=== PATIENT | female | born 1965 | race Caucasian/White ===

== ENCOUNTER → 2025-05-25 | Outpatient (CLI) | payer OTHER, SELFPAY ==
[2025-05-25 07:30] LABS: Collection Type, Urine Clean Catch
[2025-05-25 08:22] LABS: Bacteria,Urine Rare; Basophils # (Auto) 0.1 Thou/mm3 (0.0-0.2); Basophils % (Auto) 1 % (0-2.5); Bilirubin,Urine Negative (Negative); Blood,Urine Negative (Negative); Clarity,Urine Clear (Clear/Hazy); Color,Urine Lt-Yellow (Lt Yel-Yel); Eosinophils # (Auto) 0.2 Thou/mm3 (0.0-0.5); Eosinophils % (Auto) 3 % (0-10); Glucose, Urine Negative (Negative); Hematocrit 42.4 % (36.0-46.0); Hemoglobin 14.3 g/dL (12.0-16.0); Hyaline Casts,Urine < 1 /hpf (0-1); Immature Granulocytes % (Auto) 0 % (0-0); Immature Granulocytes Auto 0.02 Thou/mm3 (0.00-0.00); Ketones,Urine Negative (Negative); Leukocyte Esterase,Urine Positive (Negative); Lymphocytes # (Auto) 2.4 Thou/mm3 (1.0-4.8); Lymphocytes % (Auto) 35 % (10-50); Mean Corpuscular HGB Conc 33.7 g/dl (31.0-37.0); Mean Corpuscular Volume 89 fL (80-100); Monocytes # (Auto) 0.4 Thou/mm3 (0.0-0.8); Monocytes % (Auto) 7 % (0-12); Neutrophils # (Auto) 3.6 Thou/mm3 (1.8-7.7); Neutrophils % (Auto) 54 % (37-80); Nitrite,Urine Negative (Negative); Nucleated Red Blood Cell % 0 /100 WBC (0); Platelet Count 313 Thou/mm3 (140-440); Protein,Urine Negative (Neg - Trace); RBC,Urine 4 /hpf (0-3); RDW Standard Deviation 43.7 fL (36.4-46.3); Red Blood Count 4.76 Miln/mm3 (4.00-5.20); Specific Gravity,Urine 1.023 (1.001-1.035); Squamous Epithelial Cell,Urine 16 /hpf (0-5); Urobilinogen,Urine Negative mg/dL (0.0-1.0); WBC,Urine 12 /hpf (0-5); White Blood Count 6.7 Thou/mm3 (3.6-11.0)
[2025-05-25 08:27] LABS: Glucose Estimated Average 97 mg/dL (80-131)
[2025-05-25 08:28] LABS: Alanine Aminotransferase 27 U/L (10-49); Albumin, Serum 4.3 gm/dL (3.5-5.0); Albumin/Globulin Ratio 1.6 (1.2-2.2); Alkaline Phosphatase 90 U/L (46-116); Anion Gap 7 (7-16); Aspartate Amino Transferase 29 U/L (0-34); BUN/Creatinine Ratio 18 Ratio (12-20); Bilirubin,Total 0.5 mg/dL (0.3-1.2); Blood Urea Nitrogen 14 mg/dL (9-23); Calcium 9.1 mg/dL (8.3-10.6); Calcium (Corrected) 9.1 mg/dL (8.5-10.1); Carbon Dioxide 28.8 mMol/L (20.0-31.0); Cardiac Risk Estimate 3.3 RATIO (3.7-5.6); Chloride 103 mMol/L (98-107); Cholesterol 203 mg/dL (132-200); Creatinine (Component) 0.8 mg/dL (0.6-1.3); Globulin 2.7 gm/dL (2.3-3.5); Glucose 89 mg/dL (74-106); HDL Cholesterol 62 mg/dL (40-60); LDL Cholesterol,Calculated 121 mg/dL (0-130); Osmolality,Calculated 277 (275-295); Sodium 139 mMol/L (136-145); Thyroid Stimulating Hormone 8.13 uIU/mL (0.55-4.78); Triglycerides 100 mg/dL (30-150); Uric Acid 5.3 mg/dL (3.1-7.8); eGFR > 60 See Note
[2025-05-25 08:51] LABS: Vitamin B12 457 pg/mL (211-911); Vitamin D 25 Hydroxy Total 51.6 ng/mL (7.3-40.2)
== END | disposition home or self-care (01) ==
PROVIDERS: PCP Internal Medicine; Referring Provider Internal Medicine; Visit Provider Internal Medicine
DX: Z00.00 Encounter for general adult medical examination without abnormal findings (principal)
CPT/HCPCS: 36415; 80053; 80061; 81001; 82306; 82607; 83036; 84443; 84550; 85025

== ENCOUNTER → 2025-07-07 | Outpatient (CLI) | payer OTHER, SELFPAY ==
--- NOTE | 2025-07-07 14:00 | XR_ITS ---
Examination: Breast ultrasound, unilateral, left complete Date and time of exam: July 07, 2025 1423 hours INDICATIONS: Patient states left breast lump 12:00 position note is beginning 2018 Technique: Real-time dykes scale ultrasonographic imaging performed left breast including all 4 quadrants as well as nipple retroareolar and axillary region. Findings: 12:00 nodule lobular margins 5.1 x 3.1 x 4.8 cm IMPRESSION: BI-RADS Category 4: Suspicious for malignancy Suspicious mass 12:00 position left breast, biopsy is needed to exclude breast carcinoma, this mass is amenable to ultrasound-guided breast biopsy for diagnosis
--- NOTE | 2025-07-07 14:30 | XR_ITS ---
Examination: Diagnostic digital mammography, unilateral, left Computer aided detection 3-D breast Tomosynthesis, unilateral Date and time of exam: July 07, 2025 1451 hours Compared to mammograms dating to April 11, 2017 INDICATIONS: Patient states left breast lump 7 years Technique: Nonmagnified MLO, CC views of the left breast have been obtained, reconstructed from 3-D Tomosynthesis images. R2 computer aided detection program utilized for evaluation of suspicious masses and/or abnormal calcifications. 3-D Tomosynthesis images obtained. Findings: Scattered areas of fibroglandular density. Calcified mass likely fat necrosis in the 12:00 position left breast, measuring 4.9 cm Impression: BI-RADS category 3: Probably benign findings Recommend 6 month follow-up left mammography to confirm stable benign calcified mass 12:00 position left breast, likely fat necrosis
== END | disposition home or self-care (01) ==
LOC: CDIM 14:02
PROVIDERS: PCP Internal Medicine; Referring Provider Internal Medicine; Visit Provider Internal Medicine
DX: R92.332 Mammographic heterogeneous density, left breast (principal); N63.25 Unspecified lump in the left breast, overlapping quadrants
CPT/HCPCS: 76641; 77061; 77065; G0279

== ENCOUNTER → 2025-08-11 | Outpatient (CLI) | payer OTHER, SELFPAY ==
[2025-08-10 08:59] LABS: Basophils # (Auto) 0.1 Thou/mm3 (0.0-0.2); Basophils % (Auto) 1 % (0-2.5); Eosinophils # (Auto) 0.2 Thou/mm3 (0.0-0.5); Eosinophils % (Auto) 4 % (0-10); Hematocrit 41.7 % (36.0-46.0); Hemoglobin 13.8 g/dL (12.0-16.0); Immature Granulocytes Auto 0.01 Thou/mm3 (0.00-0.00); Lymphocytes # (Auto) 2.3 Thou/mm3 (1.0-4.8); Lymphocytes % (Auto) 34 % (10-50); Mean Corpuscular HGB Conc 33.1 g/dl (31.0-37.0); Mean Corpuscular Hemoglobin 29.9 pg (25.0-35.0); Mean Corpuscular Volume 91 fL (80-100); Monocytes # (Auto) 0.4 Thou/mm3 (0.0-0.8); Monocytes % (Auto) 6 % (0-12); Neutrophils # (Auto) 3.7 Thou/mm3 (1.8-7.7); Neutrophils % (Auto) 55 % (37-80); Nucleated Red Blood Cell # 0.00 Thou/mm3 (0.00-0.00); Nucleated Red Blood Cell % 0 /100 WBC (0); Platelet Count 316 Thou/mm3 (140-440); RDW Standard Deviation 44.2 fL (36.4-46.3); Red Blood Count 4.61 Miln/mm3 (4.00-5.20); White Blood Count 6.7 Thou/mm3 (3.6-11.0)
[2025-08-10 09:15] LABS: INR 1.0 (0.9-1.3); Partial Thromboplastin Time 28.8 Seconds (22.0-36.0); Prothrombin Time 10.8 Seconds (9.0-12.2)
--- NOTE | 2025-08-11 08:30 | XR_ITS ---
Examinations: Ultrasound-guided percutaneous breast biopsy, left breast 12:00 nodule Left breast sonography limited INDICATIONS: BI-RADS 4 suspicious nodule 12:00 position left breast on sonogram July 07, 2025. Exam date and time: August 11, 2025 0917 hours Informed consent provided. Technique: A timeout was completed verifying correct patient, procedure, site, positioning, and special equipment if applicable Informed consent provided. The patient was placed in a supine position for the breast biopsy. Sonographic images of the breast were performed for localization of the suspicious nodule The patient's breast was prepped and draped in sterile fashion. Maximum sterile barrier technique, hand hygiene, ultrasound sterile technique 1% lidocaine was used to anesthetize the skin and breast adjacent to the suspicious nodule. Utilizing ultrasonographic guidance, 8 core biopsies were obtained of the suspicious nodule utilizing an 18-gauge BioPince needle. The specimens appears satisfactory. US guided breast biopsy marker placement. Estimated blood loss 3 cc. The patient tolerated the procedure well and there were no complications. Impression: Successful ultrasound-guided percutaneous breast biopsy, left breast 12:00 nodule. Ultrasound guided breast biopsy marker placement.
== END | disposition home or self-care (01) ==
PROVIDERS: Radiology Diagnostic Radiology; PCP Internal Medicine; Referring Provider Internal Medicine; Visit Provider Internal Medicine
DX: D24.2 Benign neoplasm of left breast (principal); N60.32 Fibrosclerosis of left breast; R92.1 Mammographic calcification found on diagnostic imaging of breast; Z01.812 Encounter for preprocedural laboratory examination
CPT/HCPCS: 19083; 36415; 85025; 85610; 85730; A4648

== ENCOUNTER → 2025-08-19 | Outpatient (CLI) | payer OTHER, SELFPAY ==
[2025-08-19 07:55] LABS: Free T4 (Free Thyroxine) 1.44 ng/dL (0.89-1.76); Thyroid Stimulating Hormone 4.02 uIU/mL (0.55-4.78)
== END | disposition home or self-care (01) ==
PROVIDERS: PCP Internal Medicine; Referring Provider Internal Medicine; Visit Provider Internal Medicine
DX: E03.9 Hypothyroidism, unspecified (principal)
CPT/HCPCS: 36415; 84439; 84443

== ENCOUNTER → 2025-10-20 | Outpatient (CLI) | payer OTHER, SELFPAY ==
--- NOTE | 2025-10-20 13:35 | XR_ITS ---
Examination: Breast ultrasound, unilateral, left complete Date and time of exam: October 20, 2025, 1344 hours INDICATIONS: Left breast lump and cellulitis pattern noted 2 months Technique: Real-time dykes scale ultrasonographic imaging performed left breast including all 4 quadrants as well as nipple retroareolar and axillary region. Findings: 12:00 3.6 x 2.4 x 4.5 cm mass with internal echogenicity IMPRESSION: BI-RADS Category 3: Probably benign findings Mass in the left breast in the 12 o'clock position, differential would include abscess, solid tumor mass not excluded, the appearance should be clinically correlated 3-month follow-up left breast sonogram strongly recommended, also recommend repeat left diagnostic mammography
== END | disposition home or self-care (01) ==
PROVIDERS: PCP Internal Medicine; Referring Provider Internal Medicine; Visit Provider Internal Medicine
DX: N63.25 Unspecified lump in the left breast, overlapping quadrants (principal)
CPT/HCPCS: 76641

== ENCOUNTER 2025-11-30 09:15 | Day surgery (SDC) | payer OTHER, SELFPAY ==
--- NOTE | 2025-11-29 07:00 | EKG_ITS ---
[facility], [place] Test Date: 2025-11-29 Pat Name: NICO RANKIN Department: Room: - Gender: Female Alarm Installation Technician: ARMAND : 1965 Requested By: Jefferson Ortiz Order Number: [id number] Reading MD: Jefferson Ortiz Measurements Intervals [place] Rate: 64 P: 70 PA: 156 QRS: 74 QRSD: 74 T: 51 QT: 379 QTc: 394 Interpretive Statements SINUS RHYTHM No previous ECG available for comparison /[id number]/S0/[id number].pdf
[2025-11-29 07:39] VITALS: BMI 34.8
[2025-11-29 08:30] LABS: Basophils # (Auto) 0.1 Thou/mm3 (0.0-0.2); Basophils % (Auto) 1 % (0-2.5); Eosinophils # (Auto) 0.2 Thou/mm3 (0.0-0.5); Eosinophils % (Auto) 3 % (0-10); Hematocrit 41.6 % (36.0-46.0); Hemoglobin 13.5 g/dL (12.0-16.0); Immature Granulocytes Auto 0.02 Thou/mm3 (0.00-0.00); Lymphocytes # (Auto) 1.5 Thou/mm3 (1.0-4.8); Lymphocytes % (Auto) 21 % (10-50); Mean Corpuscular HGB Conc 32.5 g/dl (31.0-37.0); Mean Corpuscular Hemoglobin 29.7 pg (25.0-35.0); Mean Corpuscular Volume 92 fL (80-100); Monocytes # (Auto) 0.4 Thou/mm3 (0.0-0.8); Monocytes % (Auto) 6 % (0-12); Neutrophils # (Auto) 5.0 Thou/mm3 (1.8-7.7); Neutrophils % (Auto) 70 % (37-80); Nucleated Red Blood Cell # 0.00 Thou/mm3 (0.00-0.00); Nucleated Red Blood Cell % 0 /100 WBC (0); Platelet Count 316 Thou/mm3 (140-440); RDW Standard Deviation 47.9 fL (36.4-46.3); Red Blood Count 4.54 Miln/mm3 (4.00-5.20); White Blood Count 7.2 Thou/mm3 (3.6-11.0)
[2025-11-29 08:42] LABS: Alanine Aminotransferase 53 U/L (10-49); Albumin, Serum 4.3 gm/dL (3.5-5.0); Albumin/Globulin Ratio 1.4 (1.2-2.2); Alkaline Phosphatase 98 U/L (46-116); Anion Gap 7 (7-16); Aspartate Amino Transferase 42 U/L (0-34); BUN/Creatinine Ratio 14 Ratio (12-20); Bilirubin,Total 0.3 mg/dL (0.3-1.2); Blood Urea Nitrogen 15 mg/dL (9-23); Calcium 9.7 mg/dL (8.3-10.6); Calcium (Corrected) 9.7 mg/dL (8.5-10.1); Carbon Dioxide 29.9 mMol/L (20.0-31.0); Chloride 101 mMol/L (98-107); Creatinine (Component) 1.1 mg/dL (0.6-1.3); Estimated Creatinine Clearance 69.5 mL/min (>60); Globulin 3.1 gm/dL (2.3-3.5); Glucose 90 mg/dL (74-106); Osmolality,Calculated 276 (275-295); Potassium 3.8 mMol/L (3.4-5.1); Sodium 138 mMol/L (136-145); Total Protein 7.4 gm/dL (5.7-8.2); eGFR 58 See Note
--- NOTE | 2025-11-29 12:30 | SUR.PREOP ---
Pt notified to come in tomorrow at 0900 for surgery.
[2025-11-30] VITALS (8 sets, daily range): BP systolic 110–137; BP diastolic 64–95; PULSE 63–82; RESP 12–20; TEMP 36.4–36.8; O2SAT 96–100
[2025-11-30] MEDS: RINGERS LACTATED 1000 ML 1,000 ML 20 ML IV (09:47)
--- NOTE | 2025-11-30 11:43 | ESOP_ITS ---
Date of Procedure 11/30/25 Pre Op Diagnosis Left breast lump Post Op Diagnosis Left breast lump Procedure Left breast lumpectomy Findings A hard lump in the left breast in the upper quadrant. A hard and fluid-filled mass deep in the breast attached to pectoralis fascia, likely the source of her recurrent infection Procedure Description Patient brought into the operating room in supine position. After administration of general endotracheal anesthesia, patient's left breast was prepped and draped in sterile surgical manner. She was noted to have a hard mass in the upper quadrant at 12:00 location. After administration of local anesthesia an approximately 6 cm elliptical incision was made and circumferential flaps were raised. The underlying lab was circumferentially dissected of breast tissue and continued deep. Deep in the upper part of the left breast she was noted to have a hard fluid-filled mass attached to the pectoralis fascia. The lump was circumferentially dissected and removed. The wound was washed and irrigated and hemostasis achieved using electrocautery. The wound was washed with Betadine as well as warm saline. Deep breast tissue reapproximated with interrupted sutures using 2-0 Vicryl. Subcutaneous tissue closed with interrupted sutures using 3-0 Vicryl and incision was closed with 4- 0 Monocryl in subcuticular fashion. Dermabond and sterile pressure dressings applied. A breast binder was also placed. Patient tolerated procedure well. She was extubated, breathing spontaneously without difficulty and was transferred to postanesthesia care in stable condition. Instruments, needles and sponge counts were reported to be correct x 2. Anesthesia GETA and local Pathology / specimen Other (Left breast mass) Estimated Blood Loss 10 Condition Stable Disposition PACU Surgeon Jefferson Ortiz MD Surgical Staff Operation Date: 11/30/25 11:00 Case Staff Anesthesiologist: Marcial Josue RN First Assistant: Elizabeth Hook
--- NOTE | 2025-11-30 12:10 | SUR.PHASEI ---
Addendum entered by Tiny Roberto RN 11/30/25 15:49: Pt arrival time to [facility] should reflect 1149 not 1145. Original Note: 1145: Pt received in [facility] via gurney. Report from Courtney RUBI and Dr. Huntley. Pt groggy. Easily aroused with eye opening then drifts back to sleep. Resp even, unlabored. VS stable. Dressing to left breast dry, clean, intact. No c/o pain, discomfort. 1212: Pt resting with no complaints voiced. Resp even, unlabored. VS stable. Denies pain.
--- NOTE | 2025-11-30 13:23 | SUR.PHASEII ---
1243: Pt more awake, alert. Resp even, unlabored. VS stable. Dressing to left breast dry, clean, intact. Denies pain. Sitting up tolerating po fluids with no difficulty swallowing and no n/v. 1307: Pt fully awake, oriented x3. VS stable. Dressing unchanged. Denies pain. Pt dressed. Assisted to transport chair. Ambulation steady. Pt and stated understanding of discharge instructions. Pt also instructed to apple picker her prescriptions at [facility]. Pt discharged from [facility] in stable condition.
== END 2025-11-30 13:07 | disposition home or self-care (01) ==
PROVIDERS: Anesthesiology; PCP Internal Medicine; Referring Provider Surgery; Visit Provider Surgery
PROC: (CPT 19301; principal; 2025-11-30 10:45)
DX: N64.1 Fat necrosis of breast (principal); Z01.810 Encounter for preprocedural cardiovascular examination; I10 Essential (primary) hypertension; E03.9 Hypothyroidism, unspecified; Z79.890 Hormone replacement therapy; Z79.899 Other long term (current) drug therapy
CPT/HCPCS: 19301; 36415; 80053; 85025; 93005; A4649; J0131; J1100; J1885; J2250; J2405; J2704; J3010; J3490; J7120